=== PATIENT | male | born 1975 ===

== ENCOUNTER → 2016-09-20 | Outpatient (CLI) | payer OTHER ==
[2016-09-20 13:43] LABS: BASO % 0.6 %; BASO ABS # 0.04 K/uL (0-0.2); COMPLETE YES; EOS % 3.3 %; HEMATOCRIT 44.6 % (42-52); IG% 0.3 %; LYMPH % 35.9 %; LYMPH ABS # 2.58 K/uL (1.2-3.4); MEAN CORPUSCULAR HEMOGLOBIN 31.7 pg (25-34); MEAN CORPUSCULAR HGB CONC 35.7 g/dl (32-36); MEAN PLATELET VOLUME 10.4 fL (7.4-10.4); MONO % 6.4 %; NEUT % 53.5 %; PLATELET COUNT 300 K/uL (130-400); RED BLOOD COUNT 5.01 M/uL (4.7-6.1); WHITE BLOOD COUNT 7.19 K/uL (4.8-10.8)
[2016-09-20 16:09] LABS: ALB/GLOB RATIO 1.3 (0.9-2); ALKALINE PHOSPHATASE 88 U/L (45-117); ALT/SGPT 45 U/L (12-78); AST/SGOT 21 U/L (15-37); BLOOD UREA NITROGEN 11 mg/dl (7-18); CALCIUM 8.5 mg/dl (8.5-10.1); CARBON DIOXIDE 25 mmol/L (21-32); CHLORIDE 106 mmol/L (98-107); CHOLESTEROL 207 mg/dl (0-200); CHOLESTEROL/HDL RATIO 9.4; GLUCOSE 122 mg/dl (70-99); HDL CHOLESTEROL 22 mg/dl; POTASSIUM 4.1 mmol/L (3.5-5.1); SODIUM 141 mmol/L (136-145); TRIGLYCERIDES 909 mg/dl (0-150)
== END | disposition home or self-care (01) ==
LOC: C.LABSPEC 13:31
PROVIDERS: ATTEND Family Medicine
DX: Z00.00 Encounter for general adult medical examination without abnormal findings (principal)

== ENCOUNTER → 2017-08-29 | Outpatient (CLI) | payer OTHER ==
[2017-08-29 14:04] LABS: BASO % 0.3 %; BASO ABS # 0.03 K/uL (0-0.2); EOS % 2.1 %; EOS ABS # 0.19 K/uL (0-0.5); HEMATOCRIT 46.2 % (42-52); HEMOGLOBIN 16.7 g/dL (14.0-18.0); IG# 0.04 K/uL (0.00-0.02); LYMPH % 26.5 %; LYMPH ABS # 2.35 K/uL (1.2-3.4); MEAN CELL VOLUME 88.7 fL (80-100); MEAN CORPUSCULAR HEMOGLOBIN 32.1 pg (25-34); MEAN CORPUSCULAR HGB CONC 36.1 g/dl (32-36); MEAN PLATELET VOLUME 10.3 fL (7.4-10.4); MONO % 6.1 %; MONO ABS # 0.54 K/uL (0.11-0.59); NEUT % 64.5 %; NEUT ABS # 5.73 K/uL (1.4-6.5); PLATELET COUNT 290 K/uL (130-400); RED CELL DISTRIBUTION WIDTH CV 12.9 % (11.5-14.5); WHITE BLOOD COUNT 8.88 K/uL (4.8-10.8)
[2017-08-29 14:31] LABS: ALBUMIN 4.2 gm/dl (3.4-5.0); ALT/SGPT 53 U/L (12-78); AST/SGOT 22 U/L (15-37); BLOOD UREA NITROGEN 9 mg/dl (7-18); CALCIUM 9.3 mg/dl (8.5-10.1); CARBON DIOXIDE 29 mmol/L (21-32); CHOLESTEROL 167 mg/dl (0-200); CREATININE 1.12 mg/dl (0.60-1.40); GLUCOSE 101 mg/dl (70-99); SODIUM 139 mmol/L (136-145)
[2017-08-29 14:34] LABS: ALKALINE PHOSPHATASE 85 U/L (45-117); TOTAL PROTEIN 7.4 gm/dl (6.4-8.2)
== END | disposition home or self-care (01) ==
LOC: C.LABSPEC 13:21
PROVIDERS: ATTEND Family Medicine
DX: Z00.00 Encounter for general adult medical examination without abnormal findings (principal); E78.2 Mixed hyperlipidemia